=== PATIENT | female | born 1990 | race Caucasian/White ===

== ENCOUNTER 2016-08-09 23:27 | Emergency (ER) | payer OTHER ==
[2016-08-09] MEDS ORDERED: SODIUM CHLORIDE 0.9% 1,000 ML IV STA ×2 (23:50)
[2016-08-09] MEDS ORDERED: ONDANSETRON 4 MG/2 ML VIAL IVP STA (23:50)
[2016-08-09] MEDS ORDERED: SODIUM CHLORIDE 0.9% 500 ML IV STA (23:50)
--- NOTE | 2016-08-09 23:52 | ED ---
General Adult HPI - General Chief complaint: Vaginal Bleeding Stated complaint: Post Miscarriage-Hemorraging Time Seen by Provider: 08/09/16 23:45 Source: patient, RN notes reviewed Mode of arrival: wheelchair Limitations: no limitations - History of Present Illness Initial comments: Patient G2, P1 26-year-old female whose approximate 7 weeks , presenting with chief complaint of increased vaginal bleeding that began approximately 12 PM. She does admit that she is actively miscarrying. States she saw her MARKETING PROJECT SPECIALIST in the office approximately 12 PM. States she had a clot removed at that time has had increased bleeding throughout the day. Does admit to large blood clots approximate size of her "hand". She does admit that she began feeling lightheaded and dizzy. She is worried that she may "anemic". She denies any other complaints. She states that she took a prophylactic at 9 PM and iron pill approximately 4 PM. Denies any history of anemia. Patient denies any recent fever, chills, shortness of breath, chest pain, back pain, abdominal pain, nausea or vomiting, numbness or tingling, dysuria or hematuria, constipation or diarrhea, headaches or visual changes, or any other complaints. - Related Data Home Medications Medication Instructions Recorded Confirmed Folic Acid 1 mg PO DAILY 05/27/15 08/09/16 Allergies Allergy/AdvReac Type Severity Reaction Status Date / Time amoxicillin AdvReac Mild Itching Verified 08/09/16 23:39 Review of Systems ROS Statement: Those systems with pertinent positive or pertinent negative responses have been documented in the HPI. ROS Other: All systems not noted in ROS Statement are negative. Past Medical History Past Medical History: No Reported History Additional Past Medical History / Comment(s): Gestational diabetes. PUPPS History of Any Multi-Drug Resistant Organisms: None Reported Past Surgical History: Breast Surgery Additional Past Surgical History / Comment(s): Lump removed from left breast. Benign. Past Anesthesia/Blood Transfusion Reactions: No Reported Reaction Past Psychological History: No Psychological Hx Reported Smoking Status: Former smoker Past Alcohol Use History: None Reported Past Drug Use History: None Reported - Past Family History Sister(s) Family Medical History: Thyroid Disorder General Exam - General Exam Comments Initial Comments: General: The patient is awake and alert, in no distress, and does not appear acutely ill. Eye: Pupils are equal, round and reactive to light, extra-ocular movements are intact. No nystagmus. There is normal conjunctiva bilaterally. No signs of icterus. Ears, nose, mouth and throat: There are moist mucous membranes and no oral lesions. Neck: The neck is supple, there is no tenderness or JVD. Cardiovascular: There is a regular rate and rhythm. No murmur, rub or gallop is appreciated. Respiratory: Lungs are clear to auscultation, respirations are non-labored, breath sounds are equal. No wheezes, stridor, rales, or rhonchi. Gastrointestinal: [Soft, non-distended, non-tender abdomen without masses or organomegaly noted. There is no rebound or guarding present. No CVA tenderness. Bowel sounds are unremarkable.] Musculoskeletal: Normal ROM, no tenderness. Strength 5/5. Sensation intact. Pulses equal bilaterally 2+. Neurological: A&O x 3. CN II-XII intact, There are no obvious motor or sensory deficits. Coordination appears grossly intact. Speech is normal. Skin: Skin is warm and dry and no rashes or lesions are noted. Psychiatric: Cooperative, appropriate mood & affect, normal judgment. Limitations: no limitations External exam: Present: normal external exam (NEURO INTENSIVIST PHYSICIANAUGIE Malone present for exam.) Speculum exam: Present: normal speculum exam (Large clots seen in the vaginal vault. Mild bleeding.) Course Vital Signs 08/09/16 08/10/16 23:32 00:39 Temperature 99.7 F H 98.1 F Pulse Rate 153 H 130 H Respiratory 16 20 Rate Blood Pressure 125/60 126/65 O2 Sat by Pulse 97 98 Oximetry Medical Decision Making - Medical Decision Making Patient's labs been reviewed. Hemoglobin stable 11.3. Patient's heart rate improved after boluses here in the emergency room. She no longer feels lightheaded dizzy. Has been up freely moving around the room with no difficulties. Patient's ultrasound does show a right-sided ovarian cyst. Shows no evidence for gestational sac or intrauterine at this time. [place] to be consistent with a complete . Patient does have an appointment with her MARKETING PROJECT SPECIALIST at 8:30 AM tomorrow morning which is approximately 6 hours from now. She states she feels comfortable being discharged home to follow up tomorrow morning. Patient will be discharged advised to return if any symptoms increase or worsen or for any other concerns. She states understanding and is in agreement. - Lab Data Result diagrams: 08/10/16 00:10 08/10/16 00:10 Lab Results 08/10/16 08/10/16 08/10/16 Range/Units 00:10 00:10 00:10 WBC 7.8 (3.8-10.6) k/uL RBC 3.55 L (3.80-5.40) m/uL Hgb 11.3 L (11.4-16.0) gm/dL Hct 32.8 L (34.0-46.0) % MCV 92.6 (80.0-100.0) fL MCH 31.9 (25.0-35.0) pg MCHC 34.4 (31.0-37.0) g/dL RDW 12.2 (11.5-15.5) % Plt Count 352 (150-450) k/uL Neutrophils % 81 % Lymphocytes % 12 % Monocytes % 5 % Eosinophils % 1 % Basophils % 0 % Neutrophils # 6.3 (1.3-7.7) k/uL Lymphocytes # 0.9 L (1.0-4.8) k/uL Monocytes # 0.4 (0-1.0) k/uL Eosinophils # 0.0 (0-0.7) k/uL Basophils # 0.0 (0-0.2) k/uL PT (9.0-12.0) sec INR (<1.1) APTT (22.0-30.0) sec Sodium 136 L (137-145) mmol/L Potassium 4.1 (3.5-5.1) mmol/L Chloride 102 (98-107) mmol/L Carbon Dioxide 21 L (22-30) mmol/L Anion Gap 13 mmol/L BUN 12 (7-17) mg/dL Creatinine 0.60 (0.52-1.04) mg/dL Est GFR (MDRD) Af Amer >60 (>60 ml/min/1.73 sqM) Est GFR (MDRD) Non-Af >60 (>60 ml/min/1.73 sqM) Glucose 112 H (74-99) mg/dL Plasma Lactic Acid [place] 0.7 (0.7-2.0) mmol/L Calcium 8.8 (8.4-10.2) mg/dL Total Bilirubin 0.2 (0.2-1.3) mg/dL AST 17 (14-36) U/L ALT 34 (9-52) U/L Alkaline Phosphatase 48 (38-126) U/L Total Protein 6.7 (6.3-8.2) g/dL Albumin 3.9 (3.5-5.0) g/dL HCG, Quant 2669.1 mIU/mL Urine Color Urine Appearance (Clear) Urine pH (5.0-8.0) Ur Specific [place] (1.001-1.035) Urine Protein (Negative) Urine Glucose (UA) (Negative) Urine Ketones (Negative) Urine Blood (Negative) Urine Nitrate (Negative) Urine Bilirubin (Negative) Urine Urobilinogen (<2.0) mg/dL Ur Leukocyte Esterase (Negative) Urine RBC (0-5) /hpf Urine WBC (0-5) /hpf Urine Bacteria (None) /hpf Blood Type Blood Type Recheck 08/10/16 08/10/16 08/10/16 Range/Units 00:10 00:10 01:25 WBC (3.8-10.6) k/uL RBC (3.80-5.40) m/uL Hgb (11.4-16.0) gm/dL Hct (34.0-46.0) % MCV (80.0-100.0) fL MCH (25.0-35.0) pg MCHC (31.0-37.0) g/dL RDW (11.5-15.5) % Plt Count (150-450) k/uL Neutrophils % % Lymphocytes % % Monocytes % % Eosinophils % % Basophils % % Neutrophils # (1.3-7.7) k/uL Lymphocytes # (1.0-4.8) k/uL Monocytes # (0-1.0) k/uL Eosinophils # (0-0.7) k/uL Basophils # (0-0.2) k/uL PT 10.8 (9.0-12.0) sec INR 1.1 (<1.1) APTT 23.5 (22.0-30.0) sec Sodium (137-145) mmol/L Potassium (3.5-5.1) mmol/L Chloride (98-107) mmol/L Carbon Dioxide (22-30) mmol/L Anion Gap mmol/L BUN (7-17) mg/dL Creatinine (0.52-1.04) mg/dL Est GFR (MDRD) Af Amer (>60 ml/min/1.73 sqM) Est GFR (MDRD) Non-Af (>60 ml/min/1.73 sqM) Glucose (74-99) mg/dL Plasma Lactic Acid [place] (0.7-2.0) mmol/L Calcium (8.4-10.2) mg/dL Total Bilirubin (0.2-1.3) mg/dL AST (14-36) U/L ALT (9-52) U/L Alkaline Phosphatase (38-126) U/L Total Protein (6.3-8.2) g/dL Albumin (3.5-5.0) g/dL HCG, Quant mIU/mL Urine Color Red Urine Appearance Cloudy H (Clear) Urine pH 5.5 (5.0-8.0) Ur Specific [place] 1.020 (1.001-1.035) Urine Protein 1+ H (Negative) Urine Glucose (UA) Negative (Negative) Urine Ketones 1+ H (Negative) Urine Blood Large H (Negative) Urine Nitrate Negative (Negative) Urine Bilirubin Negative (Negative) Urine Urobilinogen <2.0 (<2.0) mg/dL Ur Leukocyte Esterase Small H (Negative) Urine RBC >182 H (0-5) /hpf Urine WBC 28 H (0-5) /hpf Urine Bacteria Rare H (None) /hpf Blood Type O Positive Blood Type Recheck No Disposition Clinical Impression: Miscarriage Disposition: HOME SELF-CARE Condition: Good Instructions: Miscarriage (ED) Additional Instructions: Please follow-up with your MARKETING PROJECT SPECIALIST with her scheduled appointment tomorrow morning. Please return here to the emergency room if any symptoms increase worsen or for any other concerns as discussed. Referrals: Eder Blakely Jr, DO [Primary Care Provider] - 1-2 days Lorenzo Starr MD [STAFF PHYSICIAN] - 1-2 days Time of Disposition: 02:28
[2016-08-10 00:40] VITALS: BP 126/65; PULSE 130; RESP 20; TEMP 98.1
[2016-08-10 01:06] LABS: Basophils % (A) 0 %; CH 32.6; CHCM 35.3; Eosinophils % (A) 1 %; HCT 32.8 % (34.0-46.0); HDW 2.23; HGB 11.3 gm/dL (11.4-16.0); Luc # (Auto) 0.13; Luc % (Auto) 2; Lymphocytes # (A) 0.9 k/uL (1.0-4.8); Lymphocytes % (A) 12 %; MCH 31.9 pg (25.0-35.0); MCHC 34.4 g/dL (31.0-37.0); MCV 92.6 fL (80.0-100.0); Mean Platelet Volume 7.5; Monocytes # (A) 0.4 k/uL (0-1.0); Monocytes % (A) 5 %; Neutrophils # (A) 6.3 k/uL (1.3-7.7); Neutrophils % (A) 81 %; RBC 3.55 m/uL (3.80-5.40); RDW 12.2 % (11.5-15.5); WBC 7.8 k/uL (3.8-10.6); WBC (Perox) 7.79
[2016-08-10 01:10] LABS: Appearance,Urine Cloudy (Clear); Bacteria,Urine Rare /hpf; Bilirubin,Urine Negative (Negative); Glucose,Urine (UA) Negative (Negative); Ketones,Urine 1+ (Negative); Leukocyte Esterase,Urine Small (Negative); Nitrite,Urine Negative (Negative); PH, Urine 5.5 (5.0-8.0); Particle Count 4220; Protein,Urine 1+ (Negative); RBC,Urine >182 /hpf (0-5); UA Billing (MACRO vs. MICRO) MICRO; Urobilinogen,Urine <2.0 mg/dL (<2.0); WBC,Urine 28 /hpf (0-5)
[2016-08-10 01:21] LABS: ALT 34 U/L (9-52); AST 17 U/L (14-36); Alkaline Phosphatase 48 U/L (38-126); Anion Gap 13 mmol/L; Blood Urea Nitrogen 12 mg/dL (7-17); Calcium 8.8 mg/dL (8.4-10.2); Carbon Dioxide 21 mmol/L (22-30); Chloride 102 mmol/L (98-107); Glucose 112 mg/dL (74-99); Non-African American GFR(MDRD) >60 (>60 ml/min/1.73 sqM); Potassium 4.1 mmol/L (3.5-5.1); Sodium 136 mmol/L (137-145); Total Bilirubin 0.2 mg/dL (0.2-1.3); Total Protein 6.7 g/dL (6.3-8.2)
--- NOTE | 2016-08-10 01:29 | US ---
EXAMINATION TYPE: US OB <= 14 wk fetus DATE OF EXAM: 08/10/2016 1:06 AM COMPARISON: NONE CLINICAL HISTORY: Patient was seen today at her OB's office. She had an ultrasound at that time and was told she was having a miscarriage. Heavy bleeding and passing large clots since that time. EXAM PERFORMED: US OB <= 14 wk fetus EXAM MEASUREMENTS: GESTATIONAL AGE / DATING Physician Established: Not established Dates by LMP: Unsure Dates by First Scan: No previous at this facility Dates by Current Scan for: No IUP visualized on today's exam MATERNAL ANATOMY Uterus: 9.5 x 5.2 x 5.7cm. Anechoic area visualized within the cervix measuring 1.0 x 0.5 x 0.9 cm Right Ovary: 2.9 x 2.0 x 1.9 cm Left Ovary: 3.3 x 1.1 x 2.0 cm Post CDS / Adnexa: Free fluid visualized in the right adnexa Presence of free fluid: Yes Presence of corpus luteal cyst: Yes, right ovary measuring 2.3 x 1.6 x 1.5 cm Presence of subchorionic bleed: No Date of LMP: Unsure, beginning of June Beta HcG (if available): Not available at time of exam TECHNOLOGIST IMPRESSION: No IUP visualized on today's exam. The endometrium appears heterogeneous IMPRESSION: There is a 10 x 5 mm cervical cyst. No evidence of an intrauterine or extrauterine gestational sac. N o endometrial thickening seen. Findings are consistent with complete in this patient with re cent . There is a 10 x 7 mm complex cyst on the right ovary.
[2016-08-10 01:37] LABS: HCG,Quantitative Serum 2669.1 mIU/mL
[2016-08-10 02:25] LABS: INR 1.1 (<1.1); Partial Thromboplastin Time 23.5 sec (22.0-30.0); Prothrombin Time 10.8 sec (9.0-12.0)
== END 2016-08-10 03:20 | disposition home or self-care (01) ==
LOC: EC 23:27
DX: O03.9 Complete or unspecified spontaneous abortion without complication (principal); Z88.0 Allergy status to penicillin; Z87.891 Personal history of nicotine dependence; Z3A.01 Less than 8 weeks gestation of pregnancy
CPT/HCPCS: 36415; 76801; 76817; 80053; 81001; 83605; 84702; 85025; 85610; 85730; 86900; 86901; 87040; 87086; 93005; 96360; 96361; 99284

== ENCOUNTER → 2016-08-09 | Outpatient (CLI) | payer OTHER | END | disposition home or self-care (01) | LOC: LABWHC1 10:48 | PROVIDERS: ATTEND Obstetrics & Gynecology | DX: O02.1 Missed abortion (principal); Z3A.00 Weeks of gestation of pregnancy not specified | CPT/HCPCS: 36415; 84702 ==

== ENCOUNTER 2016-08-10 11:10 | Day surgery (SDC) | payer OTHER ==
--- NOTE | 2016-08-10 10:45 | P.HPOB ---
History of Present Illness H&P Date: 08/10/16 Chief Complaint: Bleeding, incomplete 6wks This patient is a pleasant 26 yr female who began bleeding about 2 days ago. Evaluation showed a sac near the cervix and BHCG feel from ~8000 to 2600. Patient began bleeding heavy last evening and went to the ER. Evaluation shows a persistent sac and she continues to bleed heavy. She now presents for a suction D&C for treatment. Review of Systems Constitutional: Denies chills, Denies fever Cardiovascular: Denies chest pain, Denies shortness of breath Respiratory: Denies cough Gastrointestinal: Denies abdominal pain, Denies diarrhea, Denies nausea, Denies vomiting Genitourinary: Reports as per HPI Musculoskeletal: Denies myalgias Integumentary: Reports as per HPI Neurological: Denies numbness, Denies weakness Psychiatric: Denies anxiety, Denies depression Past Medical History Past Medical History: No Reported History Additional Past Medical History / Comment(s): Gestational diabetes. PUPPS History of Any Multi-Drug Resistant Organisms: None Reported Past Surgical History: Breast Surgery Additional Past Surgical History / Comment(s): Lump removed from left breast. Benign. Past Anesthesia/Blood Transfusion Reactions: No Reported Reaction Past Psychological History: No Psychological Hx Reported Smoking Status: Former smoker Past Alcohol Use History: None Reported Past Drug Use History: None Reported - Past Family History Sister(s) Family Medical History: Thyroid Disorder Medications and Allergies Home Medications Medication Instructions Recorded Confirmed Type Folic Acid 1 mg PO DAILY 05/27/15 08/09/16 History Allergies Allergy/AdvReac Type Severity Reaction Status Date / Time amoxicillin AdvReac Mild Itching Verified 08/09/16 23:39 Exam - OBG Physical Exam Abdomen: bowel sounds normal Vulva: both: normal Vagina: Copious dark red blood. Cervix: Cervix is dilated about 1 cm. Uterus: enlarged (6 wks size) Adnexa: both: normal Results Ultrasound shows a persistent sac in the cervical area. BHCG has dropped to 2600. Blood type is RH positive. Assessment and Plan (1) Incomplete Narrative/Plan: This patient is a pleasant 26 yr female approximately 6 wks gestation with incomplete and active bleeding. Plan is suction D&C. I did discuss this surgery with the patient and her . She understands the risks: infection, bleeding, possible uterine perforation. All of the patients questions were answered and a written consent obtained. Status: Acute
[2016-08-10] MEDS ORDERED: LIDOCAINE 1% 20 ML VIAL (10MG/ML) FOR IV START INTRADERMA ONE (11:33)
[2016-08-10] MEDS ORDERED: LACTATED RINGERS 1,000 ML IV ONE ×2 (11:38→12:54)
[2016-08-10] MEDS ORDERED: DEXAMETHASONE SOD PHOSPHATE 10 MG/ML 1 ML VIAL IV STA (11:58)
[2016-08-10] MEDS: ONDANSETRON 4 MG/2 ML VIAL IVP PRN ×2 (12:20→13:38)
[2016-08-10] MEDS ORDERED: MIDAZOLAM 2 MG/2 ML VIAL IV ONE (12:20)
[2016-08-10] MEDS ORDERED: fentaNYL (PF) 50 MCG/ML 2 ML AMP ONE (12:36)
[2016-08-10] MEDS ORDERED: MIDAZOLAM 2 MG/2 ML VIAL ONE (12:36)
[2016-08-10] MEDS ORDERED: PROPOFOL 10 MG/ML 20 ML VIAL IV ONE (12:36)
[2016-08-10] MEDS ORDERED: SUCCINYLCHOLINE CHLORIDE 100 MG/5 ML SYR IV ONE (12:36)
--- NOTE | 2016-08-10 13:10 | P.OP ---
Date of Procedure: 08/10/16 Preoperative Diagnosis: Incomplete with hemorrhage Postoperative Diagnosis: Same Procedure(s) Performed: Suction D&C Anesthesia: FIDELIA Surgeon: Lorenzo Starr Estimated Blood Loss (ml): 25 Urine output (ml): 25 Pathology: other (Uterine contents) Condition: stable Disposition: PACU Indications for Procedure: Please see dictated H&P for intimate details of this patient's admission. Some is a pleasant 26-year-old 2 para 1 female approximately 6 weeks gestation with 2 days of vaginal bleeding. Patient's evaluation showed a gestational sac in the lower part of the uterus and cervix. Patient's beta hCG has dropped from over 8000 to approximately 2500. Patient was in the emergency department with persistent heavy bleeding and now presents for suction D&C for treatment. Patient does understand this procedure and risks and risks of infection, bleeding, possible uterine perforation. All the patient's questions are answered written consent is obtained. Operative Findings: Patient had a large amount of blood in the vaginal vault and she had uterine contents consistent with degenerated products of conception Description of Procedure: This patient is taken to the operating room where she is laid in the supine position. She subsequently undergoes general endotracheal anesthesia without incident. With adequate level of anesthesia she is placed in dorsal lithotomy position. She has a vaginal perineal prep and drape. Examination under anesthesia shows some dark red blood in the vaginal vault, cervix is dilated, the uterus is slightly enlarged mid position. I placed a weighted speculum the posterior vagina. I grabbed the anterior lip of the cervix with an Allis clamp. The cervix is already dilated to allow a 10 curved suction curette easily into the uterine cavity. Suction is applied and a generous amount of tissue is removed. Another pass is made and no further tissue was noted. A gentle but thorough 4 quadrant curettage is done for no further tissue. A final pass of the suction curet is done. There is minimal bleeding at this time. Estimated blood loss for procedures 25 mL, however the patient's intraoperative hemoglobin is thought to be 7.0. At this point the procedure is terminated. Allis clamp was removed weighted speculums were removed. All counts are correct 3. Patient is taken to the recovery room in satisfactory condition. There are no complications.
[2016-08-10 13:12] VITALS: TEMP 97.8
[2016-08-10] MEDS ORDERED: KETOROLAC 30 MG/ML 1 ML VIAL IVP ONE (13:18)
[2016-08-10 13:19] VITALS: RESP 16
[2016-08-10] MEDS ORDERED: PROMETHAZINE INJ 25 MG/ML 1 ML VIAL IVPB ONE (13:40)
[2016-08-10 15:29] VITALS: BP 102/64; PULSE 126
== END 2016-08-10 16:59 | disposition home or self-care (01) ==
LOC: OR 11:10
PROVIDERS: ATTEND Obstetrics & Gynecology
DX: O03.4 Incomplete spontaneous abortion without complication (principal); O02.1 Missed abortion; Z3A.01 Less than 8 weeks gestation of pregnancy; Z79.899 Other long term (current) drug therapy; Z87.891 Personal history of nicotine dependence
CPT/HCPCS: 88305; 59812; J2250; J1100; J2550; J2405; J3010; J1885; J0330; J2704

== ENCOUNTER → 2017-05-01 | Outpatient (CLI) | payer OTHER ==
--- NOTE | 2017-05-01 09:42 | US ---
EXAMINATION TYPE: US OB <= 14 wk fetus DATE OF EXAM: 05/01/2017 COMPARISON: NONE CLINICAL HISTORY: O46.91 bleeding first trimester. EXAM PERFORMED: Transabdominal (TA) EXAM MEASUREMENTS: GESTATIONAL AGE / DATING Physician Established: (6 weeks/5 days) EDC: 12/20/17 Dates by LMP: 6 weeks/5 days) EDC: 12/20/17 Dates by First Scan: 1st scan today Dates by Current Scan for: (6 weeks/6 days) EDC: 12/19/17 MATERNAL ANATOMY Uterus: 9.1 x 4.7 x 8.5cm Right Ovary: 2.2 x 1.3 x 1.5cm Left Ovary: 3.1 x 1.9 x 2.0cm Post CDS / Adnexa: wnl Presence of free fluid: no Presence of subchorionic bleed measuring 0.6 x 0.4 x 0.4cm GESTATION / SURVEY CRL: 0.9 (6 weeks/6 days) Yolk Sac (normal less than 6mm): 2mm Heart Rate: 143 bpm Rhythm: Normal IUP: Viable IUP Date of LMP: 03/15/17 Beta HcG (if available): Preliminary results phoned to Kristan at Dr. Erickson office immediately following exam IMPRESSION: 1. Single live intrauterine with a heart rate of 143 bpm and sonographic age of 6 weeks and 6 days with estimated date of delivery of 12/19/2017 concordant with the menstrual age. 2. Small subchorionic hemorrhage occupying less than 25% of the gestational sac in diameter.
== END | disposition home or self-care (01) ==
LOC: RADUSWWP 08:29
PROVIDERS: ATTEND Obstetrics & Gynecology
DX: O46.8X1 Other antepartum hemorrhage, first trimester (principal); Z3A.01 Less than 8 weeks gestation of pregnancy
CPT/HCPCS: 76801

== ENCOUNTER → 2017-06-10 | Outpatient (CLI) | payer OTHER ==
[2017-06-10 16:17] LABS: CH 32.5; CHCM 34.8; HCT 33.8 % (34.0-46.0); HDW 2.26; HGB 11.4 gm/dL (11.4-16.0); MCH 31.6 pg (25.0-35.0); MCHC 33.8 g/dL (31.0-37.0); MCV 93.6 fL (80.0-100.0); Mean Platelet Volume 6.9; RBC 3.61 m/uL (3.80-5.40); RDW 13.9 % (11.5-15.5)
== END | disposition home or self-care (01) ==
LOC: LABWHC1 14:33
PROVIDERS: ATTEND Obstetrics & Gynecology
DX: O26.811 Pregnancy related exhaustion and fatigue, first trimester (principal); Z3A.00 Weeks of gestation of pregnancy not specified
CPT/HCPCS: 36415; 82950; 85027

== ENCOUNTER 2017-12-05 16:30 | Outpatient (CLI) | payer OTHER ==
[2017-12-05 16:53] VITALS: BP 123/82; PULSE 95; RESP 16; TEMP 98.8
--- NOTE | 2017-12-06 07:44 | P.MSEPDOC ---
Presenting Problems - Arrival Data Date of Arrival on Unit: 12/05/17 Time of Arrival on Unit: 16:53 Mode of Transport: Ambulatory - Complaint OB-Reason for Admission/Chief Complaint: Rule Out SROM Medical History - Information : 3 Para: 1 Term: 1 : 0 Abortions: Spontaneous or Elective: 1 Number of Living Children: 1 - Gestational Age Gestational Age by IVÁN (wks/days): 37 Weeks and 6 Days - History Complications: GDM Review of Systems - Review of Systems Constitutional: No problems Breast: No problems ENT: No problems Cardiovascular: No problems Respiratory: No problems Gastrointestinal: No problems Genitourinary: No problems Musculoskeletal: No problems Neurological: No problems Skin: No problems Vital Signs - Temperature Temperature: 98.8 F Temperature Source: Oral - Pulse Supine Pulse Rate: 95 Pulse Assessment Method: Automatic Cuff - Respirations Respiratory Rate: 16 Oxygen Delivery Method: Room Air - Blood Pressure Left Arm Blood Pressure: 123/82 Blood Pressure Mean: 95 Blood Pressure Source: Automatic Cuff Medical Screen Scoring (Pre) - Cervical Exam Dilation: 1-3 cm = 1 - Uterine Contractions Frequency: N/A - Maternal Vital Signs Maternal Temperature: N/A - Maternal Trauma Maternal Trauma: N/A - Assessment Baseline FHR: 138 Heart Rate - NICHD Category: Category I (Normal) = 0 - Total Score Total Score (Pre): 1 Physician Notification (Pre) - Physician Notified Physician Notified Date: 12/05/17 Physician Notified Time: 17:20 Physician/Practitioner Notifed:: dr pollock New Order Received: Yes - Notification Comment Comment: pt to discharge home Disposition - Disposition OB Disposition: Discharge to home, Written follow up instructions reviewed Discharge Date: 12/05/17 Discharge Time: 17:21 I agree with the RN Medical Screening Exam: Yes Risk & Benefit of care provided described in d/c instruction: Yes Diagnosis: FALSE LABOR AT OR AFTER 37 COMPLETED WEEKS OF GESTATION
== END 2017-12-05 17:21 | disposition home or self-care (01) ==
LOC: FBPOP 16:30
PROVIDERS: ATTEND Obstetrics & Gynecology
DX: O47.1 False labor at or after 37 completed weeks of gestation (principal); Z3A.37 37 weeks gestation of pregnancy
CPT/HCPCS: 59025; 84112; 99213

== ENCOUNTER 2017-12-13 05:57 | Inpatient (IN) | payer OTHER ==
--- NOTE | 2017-12-13 05:56 | P.HPOB ---
History of Present Illness H&P Date: 12/13/17 Chief Complaint: Induction secondary to gestational diabetes. This patient is a pleasant 27-year-old 3 para 1 female estimated date of confinement 12/20/2017 estimated gestational age 39 weeks who presents to labor and delivery for requested induction of labor secondary to favorable cervix and also secondary to gestational diabetes. Patient's care is such that she's been diet-controlled diabetic during the with excellent control. She is now requesting induction of labor. Patient's care otherwise has been uncomplicated. Ultrasounds and nonstress testing have been normal. Review of Systems Gastrointestinal: Reports heartburn Genitourinary: Reports Menstruation: Reports amenorrhea Past Medical History Past Medical History: No Reported History Additional Past Medical History / Comment(s): Gestational diabetes. 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 History of Any Multi-Drug Resistant Organisms: None Reported Additional Past Surgical History / Comment(s): Lump removed from left breast. Benign. Patient has had a dilation and curettage. Past Anesthesia/Blood Transfusion Reactions: No Reported Reaction Past Psychological History: No Psychological Hx Reported Smoking Status: Never smoker Past Alcohol Use History: None Reported Past Drug Use History: None Reported - Past Family History Sister(s) Family Medical History: Thyroid Disorder Medications and Allergies Home Medications Medication Instructions Recorded Confirmed Type Folic Acid 1 mg PO DAILY 05/27/15 08/09/16 History Acetaminophen-Codeine 300-30mg 1 tab PO Q4H PRN #30 tablet 08/10/16 Rx [Tylenol #3] Ibuprofen [Motrin] 600 mg PO Q6HR PRN #40 tab 08/10/16 Rx Iron Ag/C/B12/Ca/Suc.acid/Stom 1 each PO DAILY #30 tablet 08/10/16 Rx [Chromagen Lf] Allergies Allergy/AdvReac Type Severity Reaction Status Date / Time amoxicillin AdvReac Mild Itching Verified 08/09/16 23:39 Exam - OBG Physical Exam Abdomen: bowel sounds normal, no diffuse tenderness, no bruit present, no guarding noted, no hepatomegaly, no splenomegaly, no mass Vulva: both: normal Vagina: normal moisture, no discharge Cervix: no lesion (Cervix most recently office was 4 cm dilated and 80% effaced. ), no discharge Results blood work shows she is oh positive, rubella immune, RPR nonreactive, hepatitis B negative, Glucola was abnormal in the first trimester so she was referred to endocrinology at this time. Ultrasounds have been normal. B strep was negative. Estimated weight is 8 pounds. Assessment and Plan Assessment: This is a pleasant 27-year-old 3 para 2 female 39 weeks gestation with gestational diabetes at term with favorable cervix. Plan is induction of labor and anticipate vaginal delivery. (1) Gestational diabetes mellitus (GDM) affecting Status: Acute Code(s): O24.419 - GESTATIONAL DIABETES MELLITUS IN , UNSP CONTROL SNOMED Code(s): 25272423398302 (2) Third trimester Status: Acute Code(s): Z33.1 - STATE, INCIDENTAL SNOMED Code(s): 02288240 (3) Elective induction of labor planned Status: Acute Code(s): ISI3543 - SNOMED Code(s): 260479769
[2017-12-13] MEDS ORDERED: TERBUTALINE 1 MG/ML VIAL SQ PRN (06:14)
[2017-12-13] MEDS ORDERED: OXYTOCIN 20 UNITS/1000 ML NS 1,000 ML IV SCH ×2 (06:14→13:49)
[2017-12-13] MEDS ORDERED: CARBOPROST TROMETHAMINE 250 MCG/ML 1 ML AMP IM PRN (06:14)
[2017-12-13] MEDS ORDERED: LIDOCAINE 1% (PF) 10 MG/ML (30 ML SDV) SQ PRN (06:14)
[2017-12-13] MEDS ORDERED: OXYTOCIN 10 UNIT/ML 1 ML VIAL IM PRN (06:14)
[2017-12-13] MEDS ORDERED: METHYLERGONOVINE 0.2 MG/ML 1 ML AMP IM PRN (06:14)
[2017-12-13] MEDS: LACTATED RINGERS 1,000 ML IV SCH ×3 (06:25→12:22)
[2017-12-13 06:36] LABS: Basophils % (A) 0 %; Eosinophils # (A) 0.1 k/uL (0-0.7); Eosinophils % (A) 2 %; HCT 36.3 % (34.0-46.0); HGB 12.5 gm/dL (11.4-16.0); Lymphocytes # (A) 1.3 k/uL (1.0-4.8); Lymphocytes % (A) 21 %; MCH 34.3 pg (25.0-35.0); MCHC 34.4 g/dL (31.0-37.0); MCV 99.6 fL (80.0-100.0); Mean Platelet Volume 7.7; Monocytes # (A) 0.4 k/uL (0-1.0); Monocytes % (A) 7 %; Neutrophils # (A) 4.2 k/uL (1.3-7.7); Neutrophils % (A) 67 %; Platelet Count 203 k/uL (150-450); RBC 3.65 m/uL (3.80-5.40); RDW 12.8 % (11.5-15.5); WBC 6.3 k/uL (3.8-10.6)
[2017-12-13 07:15] LABS: Glucose,Whole Blood 102 mg/dL (75-99)
[2017-12-13 08:16] VITALS: BMI 24.5
[2017-12-13] MEDS ORDERED: SODIUM CHLORIDE 0.9% 100 ML BAG ONE (10:40)
[2017-12-13] MEDS ORDERED: BUPIVACAINE (PF) 0.25% 30 ML VIAL ONE (10:40)
[2017-12-13] MEDS ORDERED: fentaNYL (PF) 50 MCG/ML 5 ML AMP ONE (10:40)
[2017-12-13 10:48] LABS: Glucose,Whole Blood 93 mg/dL (75-99)
[2017-12-13 12:23] LABS: Hemoglobin A1C 5.3 % (4.0-6.0)
[2017-12-13] MEDS ORDERED: SIMETHICONE 80 MG CHEWABLE PO PRN (13:49)
[2017-12-13] MEDS ORDERED: LANOLIN CREAM 5 GM TUBE TOPICAL PRN (13:49)
[2017-12-13] MEDS ORDERED: BISACODYL 10 MG SUPP RECTAL PRN (13:49)
[2017-12-13] MEDS ORDERED: IBUPROFEN 600 MG TAB PO PRN (13:49)
[2017-12-13] MEDS ORDERED: ZOLPIDEM 5 MG TAB PO PRN (13:49)
[2017-12-13] MEDS ORDERED: diphenhydrAMINE 50 MG/ML 1 ML VIAL IVP PRN (13:49)
[2017-12-13] MEDS ORDERED: ACETAMINOPHEN TAB 325 MG TAB PO PRN (13:49)
[2017-12-13] MEDS ORDERED: BENZOCAINE/MENTHOL SPRAY 1 GM/SPRAY AEROSOL TOPICAL PRN (13:49)
[2017-12-13] MEDS ORDERED: WITCH HAZEL 1 EACH MED..PAD TOPICAL PRN (13:49)
[2017-12-13] MEDS ORDERED: HYDROCORTISONE 2.5% RECTAL CREAM 30 GM TUBE RECTAL PRN (13:49)
[2017-12-13] MEDS ORDERED: diphenhydrAMINE 25 MG CAP PO PRN (13:49)
--- NOTE | 2017-12-13 16:37 | P.PROBDLV ---
Vaginal Delivery Note - . Vaginal Delivery Note: Normal vaginal delivery viable male infant Apgars 9 and 9 delivery time is 1325 hrs. Please see dictated H&P for intimate details of this patient's admission. Brief summary is a pleasant 27-year-old 3 para 1 female 39-0/7 weeks gestation who is admitted to labor and delivery for induction of labor secondary to gestational diabetes and favorable cervix. On admission patient is 4 cm dilated and has artificial rupture membranes for clear fluid. Patient' s labor is induced with Pitocin per protocol. Patient's labor progresses and she gets an epidural for pain control. Patient thereafter goes to complete pushes the head to the perineum. Posterior perineum is supported and we have controlled delivery of the infant's head over the intact perineum. Mouth and nares are bulb suctioned. There is a very loose nuchal cord at this time the patient continues to push and deliver the anterior posterior shoulder and rest this infant's body. This is a vigorous viable male Apgars are 9 and 9 delivery time is 1325 hrs. After delivery of the the umbilical cord is doubly clamped and cut appears to be trivascular. The placenta is then spontaneously delivered intact. Estimated blood loss is 100 mL. There is a first-degree right labial laceration was repaired with 3-0 Vicryl in the usual fashion excellent reapproximation is noted. All counts are correct 3. There are no complications. and mother are stable delivery room.
[2017-12-13] MEDS: SENNOSIDES-DOCUSATE SODIUM 1 EACH TAB PO SCH ×2 (20:04→22:18)
--- NOTE | 2017-12-14 06:48 | P.PNOBGVD ---
Subjective - Subjective Patient reports: Reports appetite normal, Reports voiding normally, Reports pain well controlled, Reports ambulating normally : doing well Objective - Latest Vital Signs Latest vital signs: Vital Signs Temp Pulse Resp BP Pulse Ox 12/14/17 04:00 98.0 F 79 17 119/71 100 12/14/17 00:00 98.1 F 78 18 120/72 100 12/13/17 20:15 98.1 F 73 18 124/74 98 12/13/17 16:00 96.8 F L 106 H 20 127/88 98 12/13/17 15:20 100 20 124/70 12/13/17 14:50 85 18 117/69 12/13/17 14:20 84 18 124/78 12/13/17 14:05 96.6 F L 94 18 124/75 12/13/17 13:50 96.6 F L 103 H 20 113/68 12/13/17 13:35 86 20 120/85 Intake and Output 12/13/17 12/13/17 12/14/17 14:59 22:59 06:59 Intake Total 1999 1999 Output Total 150 Balance 1999 1850 Intake: Intake, IV Titration 1999 1999 Amount Lactated Ringers 1,000 ml 2000 1000 @ 125 mls/hr IV .Q8H [facility] Rx#:[id number] Oxytocin 20 Units/1000 ml 1000 Ns 1,000 ml @ 1 MILLIUNIT/MIN 3 mls/hr IV .Q24H [facility] Rx#:[id number] Output: Estimated Blood Loss 150 Other: Voiding Method Toilet # Voids 1 1 Weight 58.967 kg - Exam Lungs: bilateral: normal Chest: Normal S1, Normal S2 Extremities: Present: normal Abdomen: Present: normal appearance, soft Uterus: Present: normal, firm - Labs Labs: Abnormal Lab Results - Last 24 Hours (Table) 12/13/17 12/13/17 Range/Units 06:20 06:52 RBC 3.65 L (3.80-5.40) m/uL POC Glucose (mg/dL) 102 H (75-99) mg/dL Assessment and Plan Assessment: Post day #1. She is resting without complaints and wishes to go home. Vital signs are stable she is afebrile. Uterus is firm nontender and she is having normal lochia. I impression this is a normal course. Plan is to continue routine care discharge home later today. (1) Gestational diabetes mellitus (GDM) affecting Current Visit: No Status: Acute Code(s): O24.419 - GESTATIONAL DIABETES MELLITUS IN , UNSP CONTROL SNOMED Code(s): 10309503256725 (2) Third trimester Current Visit: No Status: Acute Code(s): Z33.1 - STATE, INCIDENTAL SNOMED Code(s): 55524217 (3) Elective induction of labor planned Current Visit: Yes Status: Acute Code(s): ITW2434 - SNOMED Code(s): 060417771
--- NOTE | 2017-12-14 06:55 | P.DS ---
Providers Date of admission: 12/13/17 05:57 Expected date of discharge: 12/14/17 Attending physician: Lorenzo Starr Primary care physician: Stated None - Discharge Diagnosis(es) (1) Gestational diabetes mellitus (GDM) affecting Current Visit: No Status: Acute (2) Third trimester Current Visit: No Status: Acute (3) Elective induction of labor planned Current Visit: Yes Status: Acute Hospital Course: Please see dictated H&P for intimate details of this patient's admission. Brief summary this is a pleasant 27-year-old 3 para 1 female 39-0/7 weeks gestation who presented for induction of labor secondary to gestational diabetes favorable cervix. Patient is admitted has uncomplicated induction of labor was on have a vaginal delivery viable male . Please see dictated delivery note. day 1 patient without complaints wishes to go home patient's felt be stable for discharge home follow up with me in 6 weeks. Procedures: Induction of labor normal vaginal delivery. Patient Condition at Discharge: Good Plan - Discharge Summary New Discharge Prescriptions: New Ibuprofen [Motrin] 600 mg PO Q6HR PRN #40 tab PRN Reason: Mild Pain Or Fever >= 100.5 No Action Folic Acid 1 mg PO DAILY Discharge Medication List Folic Acid 1 mg PO DAILY 05/27/15 [History] Ibuprofen [Motrin] 600 mg PO Q6HR PRN #40 tab 12/14/17 [Rx] Follow up Appointment(s)/Referral(s): Lorenzo Starr MD [STAFF PHYSICIAN] - 01/24/18 9:15 am Patient Instructions/Handouts: Vaginal Delivery (DC) Activity/Diet/Wound Care/Special Instructions: No intercourse or anything per vagina for 6 weeks. Please call if any fever, chills, excessive vaginal bleeding, and/or abdominal pain. Discharge Disposition: HOME SELF-CARE
[2017-12-14 09:11] VITALS: RESP 16; TEMP 98.1
[2017-12-14 12:56] VITALS: BP 116/73; PULSE 78
== END 2017-12-14 14:21 | disposition home or self-care (01) | DRG 775 ==
LOC: 4FBP 05:57
PROVIDERS: ADMIT Obstetrics & Gynecology; ATTEND Obstetrics & Gynecology
PROC: 3E033VJ Introduction of Other Hormone into Peripheral Vein, Percutaneous Approach (ICD-10-PCS; principal; 2017-12-13)
PROC: 00HU33Z Insertion of Infusion Device into Spinal Canal, Percutaneous Approach (ICD-10-PCS; principal; 2017-12-13)
PROC: 10E0XZZ Delivery of Products of Conception, External Approach (ICD-10-PCS; principal; 2017-12-13)
PROC: 10907ZC Drainage of Amniotic Fluid, Therapeutic from Products of Conception, Via Natural or Artificial Opening (ICD-10-PCS; principal; 2017-12-13)
PROC: 0HQ9XZZ Repair Perineum Skin, External Approach (ICD-10-PCS; principal; 2017-12-13)
PROC: 3E0R3NZ Introduction of Analgesics, Hypnotics, Sedatives into Spinal Canal, Percutaneous Approach (ICD-10-PCS; principal; 2017-12-13)
DX: O24.420 Gestational diabetes mellitus in childbirth, diet controlled (principal); Z37.0 Single live birth; O69.81X0 Labor and delivery complicated by cord around neck, without compression, not applicable or unspecified; O70.0 First degree perineal laceration during delivery; Z3A.39 39 weeks gestation of pregnancy; Z79.1 Long term (current) use of non-steroidal anti-inflammatories (NSAID); Z79.891 Long term (current) use of opiate analgesic; Z79.899 Other long term (current) drug therapy; Z88.1 Allergy status to other antibiotic agents
CPT/HCPCS: 83036; 85025; 88307

== ENCOUNTER → 2018-06-09 | Outpatient (CLI) | payer OTHER ==
[2018-06-09 13:44] LABS: HCT 37.9 % (34.0-46.0); HGB 12.9 gm/dL (11.4-16.0); MCH 32.6 pg (25.0-35.0); MCHC 33.9 g/dL (31.0-37.0); MCV 96.2 fL (80.0-100.0); Mean Platelet Volume 6.9; Platelet Count 314 k/uL (150-450); RBC 3.94 m/uL (3.80-5.40); RDW 11.9 % (11.5-15.5); WBC 8.6 k/uL (3.8-10.6)
[2018-06-09 20:26] LABS: HIV 1 AB Non-Reactive (Non-Reactive); HIV AB P24 Non-Reactive (Non-Reactive); HIV P24 AG Non-Reactive (Non-Reactive)
== END ==
LOC: LABWHC1 11:12
PROVIDERS: ATTEND Obstetrics & Gynecology
DX: Z34.81 Encounter for supervision of other normal pregnancy, first trimester (principal); Z3A.00 Weeks of gestation of pregnancy not specified
CPT/HCPCS: 36415; 82565; 82950; 85027; 86762; 86780; 86850; 86900; 86901; 87340; 87390

== ENCOUNTER 2018-10-21 16:25 | Outpatient (CLI) | payer OTHER ==
[2018-10-21 17:24] VITALS: BP 131/77; PULSE 101; RESP 14; TEMP 97.5
--- NOTE | 2018-10-21 18:10 | P.MSEPDOC ---
Presenting Problems - Arrival Data Date of Arrival on Unit: 10/21/18 Time of Arrival on Unit: 16:25 Mode of Transport: Ambulatory Medical History - Information : 4 Para: 2 Term: 2 : 0 Abortions: Spontaneous or Elective: 1 Number of Living Children: 2 - Gestational Age Gestational Age by IVÁN (wks/days): 28 Weeks and 1 Days - History Comment: pt reports to triage with sharp shoot vaginal pain Review of Systems - Review of Systems Constitutional: No problems Breast: No problems ENT: No problems Cardiovascular: No problems Respiratory: No problems Gastrointestinal: No problems Genitourinary: No problems Musculoskeletal: No problems Neurological: No problems Skin: No problems Vital Signs - Temperature Temperature: 97.5 F Temperature Source: Temporal Artery Scan - Pulse Right Brachial Pulse Rate: 101 Pulse Assessment Method: Automatic Cuff - Respirations Respiratory Rate: 14 Oxygen Delivery Method: Room Air - Blood Pressure Right Arm Blood Pressure: 131/77 Blood Pressure Mean: 95 Blood Pressure Source: Automatic Cuff Medical Screen Scoring (Pre) - Cervical Exam Dilation: 0 cm = 0 Membranes: Intact - Uterine Contractions Frequency: N/A Duration: N/A - Maternal Vital Signs Maternal Temperature: N/A Maternal Blood Pressure: N/A Signs of Preeclampsia: N/A Maternal Respirations: N/A - Maternal Trauma Maternal Trauma: N/A - Assessment Baseline FHR: 145 Heart Rate - NICHD Category: Category I (Normal) = 0 NST: Reactive Position: N/A Station: N/A - Total Score Total Score (Pre): 0 - Level of Risk Level of Risk: Low (0-5) Physician Notification (Pre) - Physician Notified Physician Notified Date: 10/21/18 Physician Notified Time: 16:50 Physician/Practitioner Notifed:: maris Spoke With: maris New Order Received: Yes - Notification Comment Comment: pt may be discharged home Disposition - Disposition OB Disposition: Discharge to home Discharge Date: 10/21/18 Discharge Time: 17:00 I agree with the RN Medical Screening Exam: Yes Risk & Benefit of care provided described in d/c instruction: Yes Diagnosis: FALSE LABOR BEFORE 37 COMPLETED WEEKS OF GEST, THIRD TRI
== END 2018-10-21 17:00 | disposition home or self-care (01) ==
LOC: FBPOP 16:25
PROVIDERS: ATTEND Obstetrics & Gynecology
DX: O47.03 False labor before 37 completed weeks of gestation, third trimester (principal); Z3A.28 28 weeks gestation of pregnancy
CPT/HCPCS: 99213

== ENCOUNTER 2021-10-30 16:26 | Inpatient (IN) | payer BC, OTHER ==
[2021-10-30] MEDS ORDERED: SODIUM CHLORIDE 0.9% 500 ML 500 ML IV STA (16:36)
[2021-10-30] MEDS ORDERED: LORazepam 2 MG/ML INJ IV STA (16:37)
--- NOTE | 2021-10-30 16:48 | ED ---
General Adult HPI - General Chief complaint: Arrhythmia/Palpitations Stated complaint: SVT Time Seen by Provider: 10/30/21 16:26 Source: patient, EMS, RN notes reviewed, old records reviewed Mode of arrival: EMS Limitations: no limitations - History of Present Illness Initial comments: This is a 31-year-old female presents emergency Department stating she had a past medical history of SVT back in 2015. Patient states she went and saw Dr. Reaves and stopped seeing them in 2018. Patient states ever since May she has daily episodes of her heart rate getting up to 160-180 bpm sometimes over 200 beats a minute. Patient states he try to get in to see Dr. Reaves but it was a three-month wait so she made another appointment with another inter com installer out of town. Patient states she's afraid to go home because she is placed in a passout. Patient states when this started to occur today she became extremely diaphoretic and thought she was going to pass out. Patient denies any chest pain patient denies any difficulty breathing. Patient states she does have history of some anxiety. Patient denies any recent fever chills or cough. - Related Data Home Medications Medication Instructions Recorded Confirmed ALPRAZolam [Xanax] 0.25 mg PO DAILY PRN 10/30/21 10/30/21 Metoprolol Tartrate [Lopressor] 12.5 mg PO DAILY 10/30/21 10/30/21 Allergies Allergy/AdvReac Type Severity Reaction Status Date / Time amoxicillin AdvReac Mild Itching Verified 10/30/21 17:46 Latex, Natural Rubber AdvReac Itching Verified 10/30/21 17:46 Review of Systems ROS Statement: Those systems with pertinent positive or pertinent negative responses have been documented in the HPI. ROS Other: All systems not noted in ROS Statement are negative. Past Medical History Past Medical History: Diabetes Mellitus Additional Past Medical History / Comment(s): Gestational diabetes. diet controlled. Heidy has a history of benign sinus tachycardia followed by [facility] rdiology during first . History of Any Multi-Drug Resistant Organisms: None Reported Past Surgical History: No Surgical Hx Reported Additional Past Surgical History / Comment(s): Lump removed from left breast. Benign. Patient has had a dilation and curettage. Past Anesthesia/Blood Transfusion Reactions: No Reported Reaction Past Psychological History: No Psychological Hx Reported Smoking Status: Never smoker Past Alcohol Use History: Occasional Past Drug Use History: None Reported - Past Family History Sister(s) Family Medical History: Thyroid Disorder General Exam - General Exam Comments Initial Comments: GENERAL: Patient is well-developed and well-nourished. Patient is nontoxic and well- hydrated and is in mild distress. ENT: Neck is soft and supple. No significant lymphadenopathy is noted. Oropharynx is clear. Moist mucous membranes. Neck has full range of motion without eliciting any pain. EYES: The sclera were anicteric and conjunctiva were pink and moist. Extraocular movements were intact and pupils were equal round and reactive to light. Eyelids were unremarkable. PULMONARY: Unlabored respirations. Good breath sounds bilaterally. No audible rales rhonchi or wheezing was noted. CARDIOVASCULAR: Patient is tachycardic at about 140 beats a minute it is regular ABDOMEN: Soft and nontender with normal bowel sounds. SKIN: Skin is clear with no lesions or rashes and otherwise unremarkable. NEUROLOGIC: Patient is alert and oriented x3. Cranial nerves II through XII are grossly intact. Motor and sensory are also intact. Normal speech, volume and content. Symmetrical smile. MUSCULOSKELETAL: Normal extremities with adequate strength and full range of motion. LYMPHATICS: No significant lymphadenopathy is noted PSYCHIATRIC: Normal psychiatric evaluation. Limitations: no limitations Course Vital Signs 10/30/21 10/30/21 10/30/21 16:28 18:07 18:45 Temperature 99.3 F Pulse Rate 130 H 112 H 177 H Respiratory 18 18 Rate Blood Pressure 116/82 O2 Sat by Pulse 98 98 Oximetry 10/30/21 10/30/21 10/30/21 19:06 19:32 20:34 Temperature 98.7 F Pulse Rate 136 H 126 H 123 H Respiratory 18 18 18 Rate Blood Pressure 122/82 128/88 117/82 O2 Sat by Pulse 98 Oximetry Medical Decision Making - Medical Decision Making EKG shows sinus tachycardia 124 bpm QRS is 90 QT interval is 282 QTC is 356 per patient's EKG shows no ST segment elevation or depression. I spoke with Dr. Reaves he wanted the patient admitted admitted the patient. I spoke with Dr. Carnes he agreed to accept the admission admitted the patient consult cardiology. Patient's heart rate would go up multiple 160 bpm multiple times I spoke with Dr. Reaves he wanted the patient on Cardizem drip 10 mg per hour - Lab Data Result diagrams: 10/30/21 16:40 10/30/21 16:40 Lab Results 10/30/21 10/30/21 10/30/21 Range/Units 16:40 16:40 16:40 WBC 11.2 H (3.8-10.6) k/uL RBC 4.25 (3.80-5.40) m/uL Hgb 14.1 (11.4-16.0) gm/dL Hct 40.9 (34.0-46.0) % MCV 96.3 (80.0-100.0) fL MCH 33.2 (25.0-35.0) pg MCHC 34.4 (31.0-37.0) g/dL RDW 12.2 (11.5-15.5) % Plt Count 406 (150-450) k/uL MPV 7.3 Neutrophils % 78 % Lymphocytes % 15 % Monocytes % 3 % Eosinophils % 2 % Basophils % 0 % Neutrophils # 8.8 H (1.3-7.7) k/uL Lymphocytes # 1.7 (1.0-4.8) k/uL Monocytes # 0.4 (0-1.0) k/uL Eosinophils # 0.2 (0-0.7) k/uL Basophils # 0.0 (0-0.2) k/uL PT 10.6 (9.0-12.0) sec INR 1.0 (<1.2) APTT 24.7 (22.0-30.0) sec Sodium 135 L (137-145) mmol/L Potassium 3.3 L (3.5-5.1) mmol/L Chloride 102 (98-107) mmol/L Carbon Dioxide 22 (22-30) mmol/L Anion Gap 11 mmol/L BUN 8 (7-17) mg/dL Creatinine 0.46 L (0.52-1.04) mg/dL Est GFR (CKD-EPI)AfAm >90 (>60 ml/min/1.73 sqM) Est GFR (CKD-EPI)NonAf >90 (>60 ml/min/1.73 sqM) Glucose 145 H (74-99) mg/dL Calcium 8.9 (8.4-10.2) mg/dL Magnesium 1.7 (1.6-2.3) mg/dL Total Bilirubin 0.5 (0.2-1.3) mg/dL AST 21 (14-36) U/L ALT 19 (4-34) U/L Alkaline Phosphatase 50 (38-126) U/L Troponin I (0.000-0.034) ng/mL Total Protein 7.3 (6.3-8.2) g/dL Albumin 4.4 (3.5-5.0) g/dL TSH 1.360 (0.465-4.680) mIU/L Urine Opiates Screen (NotDetected) Ur Oxycodone Screen (NotDetected) Urine Methadone Screen (NotDetected) Ur Propoxyphene Screen (NotDetected) Ur Barbiturates Screen (NotDetected) U Tricyclic Antidepress (NotDetected) Ur Phencyclidine Scrn (NotDetected) Ur Amphetamines Screen (NotDetected) U Methamphetamines Scrn (NotDetected) U Benzodiazepines Scrn (NotDetected) Urine Cocaine Screen (NotDetected) U Marijuana (THC) Screen (NotDetected) 10/30/21 10/30/21 Range/Units 16:40 17:44 WBC (3.8-10.6) k/uL RBC (3.80-5.40) m/uL Hgb (11.4-16.0) gm/dL Hct (34.0-46.0) % MCV (80.0-100.0) fL MCH (25.0-35.0) pg MCHC (31.0-37.0) g/dL RDW (11.5-15.5) % Plt Count (150-450) k/uL MPV Neutrophils % % Lymphocytes % % Monocytes % % Eosinophils % % Basophils % % Neutrophils # (1.3-7.7) k/uL Lymphocytes # (1.0-4.8) k/uL Monocytes # (0-1.0) k/uL Eosinophils # (0-0.7) k/uL Basophils # (0-0.2) k/uL PT (9.0-12.0) sec INR (<1.2) APTT (22.0-30.0) sec Sodium (137-145) mmol/L Potassium (3.5-5.1) mmol/L Chloride (98-107) mmol/L Carbon Dioxide (22-30) mmol/L Anion Gap mmol/L BUN (7-17) mg/dL Creatinine (0.52-1.04) mg/dL Est GFR (CKD-EPI)AfAm (>60 ml/min/1.73 sqM) Est GFR (CKD-EPI)NonAf (>60 ml/min/1.73 sqM) Glucose (74-99) mg/dL Calcium (8.4-10.2) mg/dL Magnesium (1.6-2.3) mg/dL Total Bilirubin (0.2-1.3) mg/dL AST (14-36) U/L ALT (4-34) U/L Alkaline Phosphatase (38-126) U/L Troponin I <0.012 (0.000-0.034) ng/mL Total Protein (6.3-8.2) g/dL Albumin (3.5-5.0) g/dL TSH (0.465-4.680) mIU/L Urine Opiates Screen Not Detected (NotDetected) Ur Oxycodone Screen Not Detected (NotDetected) Urine Methadone Screen Not Detected (NotDetected) Ur Propoxyphene Screen Not Detected (NotDetected) Ur Barbiturates Screen Not Detected (NotDetected) U Tricyclic Antidepress Not Detected (NotDetected) Ur Phencyclidine Scrn Not Detected (NotDetected) Ur Amphetamines Screen Not Detected (NotDetected) U Methamphetamines Scrn Not Detected (NotDetected) U Benzodiazepines Scrn Not Detected (NotDetected) Urine Cocaine Screen Not Detected (NotDetected) U Marijuana (THC) Screen Not Detected (NotDetected) Critical Care Time Critical Care Time: Yes Total Critical Care Time: 35 Disposition Clinical Impression: SVT (supraventricular tachycardia), Near syncope Disposition: ADMITTED IP TO THIS [facility] Time of Disposition: 19:05
[2021-10-30 16:50] LABS: Basophils % (A) 0 %; Eosinophils # (A) 0.2 k/uL (0-0.7); Eosinophils % (A) 2 %; HCT 40.9 % (34.0-46.0); HGB 14.1 gm/dL (11.4-16.0); Lymphocytes # (A) 1.7 k/uL (1.0-4.8); Lymphocytes % (A) 15 %; MCH 33.2 pg (25.0-35.0); MCHC 34.4 g/dL (31.0-37.0); MCV 96.3 fL (80.0-100.0); Mean Platelet Volume 7.3; Monocytes # (A) 0.4 k/uL (0-1.0); Monocytes % (A) 3 %; Neutrophils # (A) 8.8 k/uL (1.3-7.7); Neutrophils % (A) 78 %; Platelet Count 406 k/uL (150-450); RBC 4.25 m/uL (3.80-5.40); RDW 12.2 % (11.5-15.5); WBC 11.2 k/uL (3.8-10.6)
[2021-10-30 16:58] LABS: Partial Thromboplastin Time 24.7 sec (22.0-30.0); Prothrombin Time 10.6 sec (9.0-12.0)
[2021-10-30 16:59] LABS: ALT 19 U/L (4-34); AST 21 U/L (14-36); African American GFR (CKD) >90 (>60 ml/min/1.73 sqM); Albumin 4.4 g/dL (3.5-5.0); Alkaline Phosphatase 50 U/L (38-126); Anion Gap 11 mmol/L; Blood Urea Nitrogen 8 mg/dL (7-17); Calcium 8.9 mg/dL (8.4-10.2); Carbon Dioxide 22 mmol/L (22-30); Chloride 102 mmol/L (98-107); Glucose 145 mg/dL (74-99); Magnesium 1.7 mg/dL (1.6-2.3); Non-African American GFR(CKD) >90 (>60 ml/min/1.73 sqM); Potassium 3.3 mmol/L (3.5-5.1); Sodium 135 mmol/L (137-145); Total Bilirubin 0.5 mg/dL (0.2-1.3); Total Protein 7.3 g/dL (6.3-8.2)
--- NOTE | 2021-10-30 17:41 | XR ---
EXAMINATION TYPE: XR chest 2V DATE OF EXAM: 10/30/2021 5:14 PM COMPARISON: None TECHNIQUE: XR chest 2V Frontal and lateral views of the chest. CLINICAL INDICATION:Female, 31 years old with history of dysrhythmia; FINDINGS: Lungs/Pleura: There is no evidence of pleural effusion, focal consolidation, or pneumothorax. Pulmonary vascularity: Unremarkable. Heart/mediastinum: Cardiomediastinal silhouette is unremarkable. Musculoskeletal: No acute osseous pathology. IMPRESSION: No acute cardiopulmonary disease/process.
[2021-10-30 18:37] LABS: Amphetamine Screen,Urine Not Detected (NotDetected); Barbiturate Screen,Urine Not Detected (NotDetected); Benzodiazepines Screen,Urine Not Detected (NotDetected); Cocaine Screen,Urine Not Detected (NotDetected); Methadone Screen, Urine Not Detected (NotDetected); Opiate Screen,Urine Not Detected (NotDetected); Oxycodone Screen, Urine Not Detected (NotDetected); Phencyclidine Screen,Urine Not Detected (NotDetected); Tricyclic Antidepressant,Urine Not Detected (NotDetected); Urn Cannabinoid Scrn Not Detected (NotDetected)
[2021-10-30] MEDS ORDERED: POTASSIUM CHLORIDE ER 20 MEQ TAB.ER PO STA (19:15)
[2021-10-30] MEDS ORDERED: NITROGLYCERIN SL TABS 0.4 MG TAB SUBLINGUAL PRN (19:17)
[2021-10-30] MEDS ORDERED: METOPROLOL TARTRATE 12.5 MG TAB PO SCH (21:00)
[2021-10-30] MEDS: DILTIAZEM 125 MG in SODIUM CHLORIDE 0.9% 100 ML IV SCH (21:44)
[2021-10-30] MEDS: METOPROLOL TARTRATE 25 MG TAB PO SCH (21:44)
--- NOTE | 2021-10-31 06:32 | HP ---
HISTORY AND PHYSICAL HISTORY OF PRESENT ILLNESS: 31-year-old white female with past medical history of SVT back 2016, seen Dr. Reaves for 2 years, then she was doing good. After her baby, she never went back. . More evidence of some SVT up to 210. She was given adenosine times 2 as an outpatient by EMS. [place] she was going to pass out. She woke up in the middle of the night short of breath. Some concerns for sleep apnea or arrhythmia triggered by hypoxia at night. MEDICATIONS: Home medicines include: Xanax for anxiety p.r.n., Lopressor 12.5 once a day tartrate. ALLERGIES: AMOXICILLIN, LATEX REVIEW OF SYMPTOMS: 14-point review of systems otherwise negative. PAST MEDICAL HISTORY: Diabetes mellitus, gestational, diet-controlled, sinus tachycardia during first trimester of , lump removed from the left breast benign, D&C. SOCIAL HISTORY: Does not smoke. Occasional alcohol. No drugs. Drug screen is negative. FAMILY HISTORY: History of thyroid disorder. PHYSICAL EXAM: Well developed, well nourished, no acute distress. HEENT within normal limits. Pupils equal, round, reactive. LUNGS: Clear. CARDIOVASCULAR: Tachycardic. Heart rate 140. ABDOMEN: Soft. SKIN: Warm and dry. NEUROLOGIC: Cranial nerves are intact. MUSCULOSKELETAL: Range of motion full. PSYCH: She is crying when she is talking about this. Pulses 177-112, temp 99.3. Labs were all reviewed. Normal thyroid. Blood pressure 116/82. ASSESSMENT AND PLAN: 1. Sinus tachycardia with history of SVT. Increase her beta izzy dose, Cardizem current p.r.n., echo. 2. Possible sleep apnea, test as an outpatient. 3. Anxiety we will have to treat as needed possibly with beta blockers. PROGNOSIS: Guarded. MMODL / IJN: [id number] /
[2021-10-31] MEDS: METOPROLOL TARTRATE 25 MG TAB PO SCH (07:49)
[2021-10-31] MEDS: DILTIAZEM 125 MG in SODIUM CHLORIDE 0.9% 100 ML IV SCH (07:50)
[2021-10-31] MEDS ORDERED: ASPIRIN 325 MG TAB PO SCH (09:00)
[2021-10-31 09:20] LABS: Triglycerides 31.2 mg/dL (0.00-149.00)
[2021-10-31 09:31] LABS: HCT 40.7 % (34.0-46.0); HGB 13.2 gm/dL (11.4-16.0); MCH 32.1 pg (25.0-35.0); MCHC 32.6 g/dL (31.0-37.0); MCV 98.7 fL (80.0-100.0); Mean Platelet Volume 7.4; Platelet Count 332 k/uL (150-450); RBC 4.12 m/uL (3.80-5.40); RDW 11.7 % (11.5-15.5); WBC 5.2 k/uL (3.8-10.6)
[2021-10-31 09:39] LABS: Chol/HDL Ratio 2.6 Ratio; LDL Cholesterol,Direct Reflex 64.1 mg/dL (0.00-129.00)
[2021-10-31 09:46] LABS: African American GFR (CKD) >90 (>60 ml/min/1.73 sqM); Anion Gap 6 mmol/L; Blood Urea Nitrogen 6 mg/dL (7-17); Calcium 9.2 mg/dL (8.4-10.2); Carbon Dioxide 25 mmol/L (22-30); Chloride 107 mmol/L (98-107); Glucose 109 mg/dL (74-99); Non-African American GFR(CKD) >90 (>60 ml/min/1.73 sqM); Potassium 4.5 mmol/L (3.5-5.1); Sodium 138 mmol/L (137-145)
[2021-10-31] MEDS ORDERED: VERAPAMIL SR 120 MG TABLET.ER PO SCH (10:45)
[2021-10-31] MEDS ORDERED: SODIUM CHLORIDE 0.9% 1,000 ML IV SCH ×2 (10:45)
[2021-10-31] MEDS ORDERED: SODIUM CHLORIDE 0.9% 500 ML 500 ML IV ONE (12:52)
[2021-10-31 13:15] VITALS: BMI 20.2
--- NOTE | 2021-10-31 13:56 | P.CRDCN ---
History of Present Illness History of present illness: HISTORY OF PRESENT ILLNESS: This is a 31 year old female with a past medical history significant for sinus tachycardia and Covid in May 2021. Patient used to follow with Dr. Reaves but has not been seen in the office since 2016. [facility] Patient examined at the bedside. Patient states she has been experiencing palpitations on a daily basis. She reports having Covid in May 2021 and reports since then she has been feeling miserable in terms of her tachycardia. She states when she gets up in the morning, her heart rate is in the 160s. This can be laying down or standing. She reports heart rates in the 200s when she is walking to the bathroom. She reports feeling like her whole body is tingling, tightness in her fingers, and feeling clammy. She states she called the cardiology office to get an appointment with Dr. Reaves but was told there was a 3 month wait. She then decided to come to the ER for further evaluation. She was started on IV Cardizem in the ER. * EKG reveals sinus tachycardia * Chest xray no acute cardiopulmonary process * Laboratory data: WBC 5.2. Hemoglobin 13.2. Platelet count 332. D-dimer 0.17. Sodium 138. Potassium 4.5. BUN 6. Creatinine 0.47. TSH 1.360. Free T4 0.91. * current home cardiac medications include metoprolol tartrate 12.5 mg daily REVIEW OF SYSTEMS: At the time of my exam: CONSTITUTIONAL: Denies fever or chills. HEENT: Denies blurred vision, vision changes, or eye pain. Denies hemoptysis CARDIOVASCULAR: Denies chest pain. Denies orthopnea. Denies PND. Denies palpitations RESPIRATORY: Denies shortness of breath. GASTROINTESTINAL: Denies abdominal pain. Denies nausea or vomiting. HEMATOLOGIC: Denies bleeding disorders. GENITOURINARY: Denies any blood in urine. SKIN: Denies pruitis. Denies rash. PHYSICAL EXAM: VITAL SIGNS: Reviewed. GENERAL: Well-developed in no acute distress. HEENT: Head is normocephalic. Pupils are equal, round. Sclerae anicteric. Mucous membranes of the mouth are moist. Neck supple. No JVD or thyromegaly LUNGS: Respirations even and unlabored. Lungs essentially clear to auscultation bilaterally. HEART: Regular rate and rhythm. S1 and S2 heard. ABDOMEN: Soft. Nondistended. Nontender. EXTREMITIES: Normal range of motion. No clubbing or cyanosis. Peripheral pulses intact. No lower extremity edema NEUROLOGIC: Awake and alert. Oriented x 3. ASSESSMENT: Inappropriate sinus tachycardia History of sinus tachycardia History of Covid, May 2021 Anxiety PLAN: Obtain 2D echo to assess cardiac structure and function No evidence of SVT. EKGs reviewed by Dr. Reaves revealing sinus tachycardia. Discontinue IV Cardizem at 1400 Discontinue metoprolol Begin verapamil 120 mg daily Patient to undergo tilt table testing today Continue telemetry monitoring Further recommendations pending patient course Nurse practitioner note has been reviewed by physician. Signing provider agrees with the documented findings, assessment, and plan of care. Past Medical History Past Medical History: Diabetes Mellitus Additional Past Medical History / Comment(s): Gestational diabetes. diet controlled. Heidy has a history of benign sinus tachycardia followed by cardiology during first . History of Any Multi-Drug Resistant Organisms: None Reported Past Surgical History: No Surgical Hx Reported Additional Past Surgical History / Comment(s): Lump removed from left breast. Benign. Patient has had a dilation and curettage. Past Anesthesia/Blood Transfusion Reactions: Postoperative Nausea & Vomiting (PONV) Past Psychological History: No Psychological Hx Reported, Anxiety Smoking Status: Never smoker Past Alcohol Use History: Occasional Past Drug Use History: None Reported - Past Family History Sister(s) Family Medical History: Thyroid Disorder Mother Additional Family Medical History / Comment(s): breast cancer Father Family Medical History: Coronary Artery Disease (CAD) Medications and Allergies Home Medications Medication Instructions Recorded Confirmed Type ALPRAZolam [Xanax] 0.25 mg PO DAILY PRN 10/30/21 10/30/21 History Metoprolol Tartrate [Lopressor] 12.5 mg PO DAILY 10/30/21 10/30/21 History Allergies Allergy/AdvReac Type Severity Reaction Status Date / Time amoxicillin AdvReac Mild Itching Verified 10/30/21 17:46 Latex, Natural Rubber AdvReac Itching Verified 10/30/21 17:46 Physical Exam Vitals: Vital Signs Temp Pulse Pulse Resp BP BP Pulse Ox 10/31/21 07:54 98.8 F 118 H 16 113/66 99 10/31/21 04:01 98.7 F 93 18 98/66 98 10/30/21 23:57 98.9 F 92 16 128/67 96 10/30/21 22:18 106 H 111/76 10/30/21 21:54 107 H 18 115/74 96 10/30/21 21:41 117 H 18 114/77 97 10/30/21 20:52 99.3 F 118 H 16 121/81 97 10/30/21 20:34 98.7 F 123 H 18 117/82 98 10/30/21 19:32 126 H 18 128/88 10/30/21 19:06 136 H 18 122/82 10/30/21 18:45 177 H 10/30/21 18:07 112 H 18 116/82 98 10/30/21 16:28 99.3 F 130 H 18 98 Intake and Output 10/30/21 10/31/21 10/31/21 22:59 06:59 14:59 Intake Total 101 Balance 101 Intake: Intake, IV Titration 101 Amount Diltiazem 125 mg In 101 Sodium Chloride 0.9% 100 ml @ 10 MG/HR 10 mls/hr IV .[id number] [facility] Rx#: [id number] Other: # Voids 1 1 Weight 48.534 kg Results 10/31/21 08:58 10/31/21 08:58 Cardiac Enzymes 10/30/21 10/30/21 10/30/21 Range/Units 16:40 16:40 20:21 AST 21 (14-36) U/L Troponin I <0.012 <0.012 (0.000-0.034) ng/mL 10/30/21 Range/Units 22:07 AST (14-36) U/L Troponin I <0.012 (0.000-0.034) ng/mL Coagulation 10/30/21 Range/Units 16:40 PT 10.6 (9.0-12.0) sec APTT 24.7 (22.0-30.0) sec Lipids 10/31/21 Range/Units 00:07 Triglycerides 31.20 (0.00-149.00) mg/dL Cholesterol 112.00 (0.00-200.00) mg/dL HDL Cholesterol 43.00 (40.00-60.00) mg/dL Cholesterol/HDL Ratio 2.60 Ratio CBC 10/30/21 10/31/21 Range/Units 16:40 08:58 WBC 11.2 H 5.2 (3.8-10.6) k/uL RBC 4.25 4.12 (3.80-5.40) m/uL Hgb 14.1 13.2 (11.4-16.0) gm/dL Hct 40.9 40.7 (34.0-46.0) % Plt Count 406 332 (150-450) k/uL Comprehensive Metabolic Panel 10/30/21 10/31/21 Range/Units 16:40 08:58 Sodium 135 L 138 (137-145) mmol/L Potassium 3.3 L 4.5 (3.5-5.1) mmol/L Chloride 102 107 (98-107) mmol/L Carbon Dioxide 22 25 (22-30) mmol/L BUN 8 6 L (7-17) mg/dL Creatinine 0.46 L 0.47 L (0.52-1.04) mg/dL Glucose 145 H 109 H (74-99) mg/dL Calcium 8.9 9.2 (8.4-10.2) mg/dL AST 21 (14-36) U/L ALT 19 (4-34) U/L Alkaline Phosphatase 50 (38-126) U/L Total Protein 7.3 (6.3-8.2) g/dL Albumin 4.4 (3.5-5.0) g/dL Current Medications Generic Name Dose Route Start Last Admin Trade Name Freq PRN Reason Stop Dose Admin Aspirin 325 mg 10/31/21 09:00 10/31/21 07:49 Aspirin 325 Mg Tab PO 325 mg DAILY AMOL Administration Diltiazem HCl 125 mg/ Sodium 125 mls @ 10 mls/hr 10/30/21 20:45 10/31/21 07:50 Chloride IV 10 mg/hr .[id number] AMOL 10 mls/hr Administration 10 MG/HR Metoprolol Tartrate 25 mg 10/30/21 20:15 10/31/21 07:49 Metoprolol Tartrate 25 Mg Tab PO 25 mg BID AMOL Administration Nitroglycerin 0.4 mg 10/30/21 19:17 Nitroglycerin Sl Tabs 0.4 Mg Tab SUBLINGUAL Q5M PRN Chest Pain Intake and Output 10/30/21 10/31/21 10/31/21 22:59 06:59 14:59 Intake Total 101 Balance 101 Intake: Intake, IV Titration 101 Amount Diltiazem 125 mg In 101 Sodium Chloride 0.9% 100 ml @ 10 MG/HR 10 mls/hr IV .[id number] [facility] Rx#: [id number] Other: # Voids 1 1 Weight 48.534 kg 10/31/21 08:58 10/31/21 08:58
[2021-10-31] MEDS ORDERED: ACETAMINOPHEN TAB 325 MG TAB PO PRN (14:24)
--- NOTE | 2021-10-31 14:54 | P.EPCON ---
Electrophysiology Consult - EP Consult Electrophysiology Consult: 31 female presenting with recurrent palpitations Resting heart rate in the supine position 95 beats a minute Heart rates up to 160 280 beats a minute sinus tachycardia TSH is normal 2-D echo and Doppler study pending Tilt table testing Inappropriate sinus tachycardia versus postural tachycardia syndrome Workup ongoing
--- NOTE | 2021-10-31 15:00 | P.EPPROC ---
- EP Procedure Note Electrophysiology Procedure Note: Twelve-lead EKG shows elevated heart rate of 89 beats a minute Normal [place] narrow QRS normal ST segments Tilt table test per protocol Baseline heart rate 95 beats a minute, Baseline blood pressure 105/68 mmHg Patient was tilted upright at an angle of 70 per protocol No change in her blood pressure Heart rate immediately increased 218 beats a minute and peak heart rate 130 beats a minute within 8 minutes of upright position It remained in the 120s to 130s until she was laid supine At that time heart rate went back to 95 beats a minute Impression Likely mild inappropriate sinus tachycardia Orthostatic intolerance No evidence for secondary neurocardiogenic for normal
--- NOTE | 2021-10-31 16:25 | CA ---
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 Procedure CPT: Indications: svt Cardiac Hx: Technical Quality: Good Contrast 1: N/A Total Dose (mL): Contrast 2: Total Dose (mL): MEASUREMENTS (Male / Female) Normal Values 2D ECHO LV Diastolic Diameter PLAX 4.8 cm 4.2 - 5.9 / 3.9 - 5.3 cm LV Systolic Diameter PLAX 3.6 cm IVS Diastolic Thickness 0.7 cm 0.6 - 1.0 / 0.6 - 0.9 cm LVPW Diastolic Thickness 0.7 cm 0.6 - 1.0 / 0.6 - 0.9 cm LV Relative Wall Thickness 0.3 RV Internal Dim ED PLAX 2.8 cm LV Diastolic Volume MOD 4C 70.0 cm LV Systolic Volume MOD 4C 34.4 cm LV Ejection Fraction MOD 4C 50.8 % LV Cardiac Index MOD 4C 2142.4 cm/minm LV Diastolic Length 4C 8.1 cm LV Systolic Length 4C 6.6 cm LV Diastolic Volume MOD 2C 125.7 cm LV Systolic Volume MOD 2C 73.5 cm LV Ejection Fraction MOD 2C 41.5 % LV Cardiac Index MOD 2C 3143.0 cm/minm LV Diastolic Length 2C 7.5 cm LV Systolic Length 2C 6.5 cm M-MODE Aortic Root Diameter MM 3.0 cm MV E Point Septal Separation 0.7 cm AV Cusp Separation MM 2.1 cm DOPPLER AV Peak Velocity 94.7 cm/s AV Peak Gradient 3.6 mmHg MV Area PHT 5.7 cm Mitral E Point Velocity 99.8 cm/s Mitral A Point Velocity 83.1 cm/s Mitral E to A Ratio 1.2 MV Deceleration Time 133.9 ms MV E' Velocity 13.8 cm/s Mitral E to MV E' Ratio 7.2 FINDINGS Left Ventricle Left ventricular ejection fraction is estimated at 50-55 %. Right Ventricle Normal right ventricular size and function. Right Atrium Normal right atrial size. Left Atrium Normal left atrial size. Mitral Valve Bileaflet mitral valve prolapse. Moderate thickening/calcification of the anterior mitral valve leaflet. Mild thickening/calcification of the posterior mitral valve leaflet. Thickened mitral valve without stenosis. Mild MV regurgitation. Aortic Valve Trileaflet aortic valve. Tricuspid Valve Structurally normal tricuspid valve. Pulmonic Valve No pulmonic regurgitation. Pericardium Normal pericardium. Aorta Normal size aortic root and proximal ascending aorta. CONCLUSIONS #1. Normal left ventricle size and function. #2. Thickened mitral leaflets with calcification. There is a minimal prolapse and mild regurgitation. #3. Normal tricuspid valve. #4. There is no pericardial effusion Previewed by: Dr. Alli Reid MD (Electronically Signed) Final Date: 31 October 2021 12:23
[2021-11-01 08:46] VITALS: TEMP 98
--- NOTE | 2021-11-01 12:55 | P.PN ---
Subjective Progress Note Date: 11/01/21 HISTORY OF PRESENT ILLNESS: This is a 31 year old female with a past medical history significant for sinus tachycardia and Covid in May 2021. Patient used to follow with Dr. Reaves but has not been seen in the office since 2016. We have been asked to see the patient in consultation for SVT. Patient examined at the bedside. Patient states she has been experiencing palpitations on a daily basis. She reports having Covid in May 2021 and reports since then she has been feeling miserable in terms of her tachycardia. She states when she gets up in the morning, her heart rate is in the 160s. This can be laying down or standing. She reports heart rates in the 200s when she is walking to the bathroom. She reports feeling like her whole body is tingling, tightness in her fingers, and feeling clammy. She states she called the cardiology office to get an appointment with Dr. Reaves but was told there was a 3 month wait. She then decided to come to the ER for further evaluation. She was started on IV Cardizem in the ER. * EKG reveals sinus tachycardia * Chest xray no acute cardiopulmonary process * Laboratory data: WBC 5.2. Hemoglobin 13.2. Platelet count 332. D-dimer 0.17. Sodium 138. Potassium 4.5. BUN 6. Creatinine 0.47. TSH 1.360. Free T4 0.91. * current home cardiac medications include metoprolol tartrate 12.5 mg daily 11/01/2021 Patient examined this morning at the bedside. Patient denies chest pain or pressure. She denies shortness of breath. Telemetry reveals sinus mechanism with a heart rate in the 90s. He is status post table testing yesterday with no change in her blood pressure. Patient was found to have tachycardia immediately as she was placed in the upright position. She has been started on atenolol. PHYSICAL EXAM: VITAL SIGNS: Reviewed. GENERAL: Well-developed in no acute distress. HEENT: Head is normocephalic. Pupils are equal, round. Sclerae anicteric. Mucous membranes of the mouth are moist. Neck supple. No JVD or thyromegaly LUNGS: Respirations even and unlabored. Lungs essentially clear to auscultation bilaterally. HEART: Regular rate and rhythm. S1 and S2 heard. ABDOMEN: Soft. Nondistended. Nontender. EXTREMITIES: Normal range of motion. No clubbing or cyanosis. Peripheral pulses intact. No lower extremity edema NEUROLOGIC: Awake and alert. Oriented x 3. ASSESSMENT: POTS History of sinus tachycardia History of Covid, May 2021 Anxiety PLAN: Continue nadolol 20 mg daily Patient is stable for discharge home today from a cardiac standpoint She is to follow up on an outpatient basis next week. Will consider increasing nadolol to 40 mg daily on an outpatient basis. Nurse practitioner note has been reviewed by physician. Signing provider agrees with the documented findings, assessment, and plan of care. Objective - Vital Signs Vital signs: Vital Signs Temp 98 F 11/01/21 11:46 Pulse 96 11/01/21 11:46 Resp 17 11/01/21 11:46 BP 114/65 11/01/21 11:46 Pulse Ox 98 11/01/21 11:46 Intake & Output 10/31/21 11/01/21 11/01/21 18:59 06:59 18:59 Intake Total 341 240 Balance 341 240 Weight 48.534 kg Intake: Intake, IV Titration 101 Amount Diltiazem 125 mg In 101 Sodium Chloride 0.9% 100 ml @ 10 MG/HR 10 mls/hr IV .[id number] AMOL Rx#: [id number] Oral 240 240 Other: # Voids 2 2 - Labs CBC & Chem 7: 10/31/21 08:58 10/31/21 08:58
[2021-11-01 15:43] VITALS: BP 116/60; PULSE 95; RESP 16
== END 2021-11-01 15:43 | disposition home or self-care (01) | DRG 310 ==
LOC: EC 16:26 → 3SCARD 19:17 → OBSVTOIN 10-31 11:56
PROVIDERS: ADMIT Family Medicine; ATTEND Family Medicine
PROC: 4A03XB1 Measurement of Arterial Pressure, Peripheral, External Approach (ICD-10-PCS; 2021-10-31)
PROC: 4A02XFZ Measurement of Cardiac Rhythm, External Approach (ICD-10-PCS; principal; 2021-10-31 14:50)
DX: I49.8 Other specified cardiac arrhythmias (principal); I47.1 Supraventricular tachycardia; E11.9 Type 2 diabetes mellitus without complications; F41.9 Anxiety disorder, unspecified; Z86.16 Personal history of COVID-19; Z86.32 Personal history of gestational diabetes; Z82.49 Family history of ischemic heart disease and other diseases of the circulatory system; Z80.3 Family history of malignant neoplasm of breast
CPT/HCPCS: 36415; 71046; 80048; 80053; 80061; 80306; 83036; 83721; 83735; 84439; 84443; 84484; 85025; 85027; 85379; 85610; 85730; 93005; 93306; 93660; 96361; 96374; 99291